=== PATIENT | male | born 1960 | race Caucasian/White ===

== ENCOUNTER 2018-04-18 09:30 | Day surgery (SDC) | payer OTHER ==
[2018-04-18] MEDS: NS 1,000 ML IV (11:54)
[2018-04-18] MEDS ORDERED: PROPOFOL 200 MG/20 ML VIAL As Ordered ×2 (12:32→12:49)
== END 2018-04-18 13:24 | disposition home or self-care (01) ==
LOC: M OPP 13:24
DX: Z12.11 Encounter for screening for malignant neoplasm of colon (principal); Z86.010 Personal history of colon polyps; K64.8 Other hemorrhoids; D12.3 Benign neoplasm of transverse colon; D12.2 Benign neoplasm of ascending colon; I10 Essential (primary) hypertension; F41.9 Anxiety disorder, unspecified; E78.00 Pure hypercholesterolemia, unspecified; M17.9 Osteoarthritis of knee, unspecified; F17.210 Nicotine dependence, cigarettes, uncomplicated; R01.1 Cardiac murmur, unspecified; Z79.82 Long term (current) use of aspirin; Z79.899 Other long term (current) drug therapy
CPT/HCPCS: 45385

== ENCOUNTER → 2021-09-26 | Outpatient (CLI) | payer OTHER ==
[~2021-09-26] MED LIST: AMLO1TAB24 PO; ASPI81TA86 PO; ATOR1TAB19 PO; CYCL-707; GLUCAGON INJ 1MG VIAL As Ordered ONE; GUAI100S51; HYDR-3363 PO; ISOVUE-370 76% 100ML VIAL As Ordered ONE; LISI20TA20 PO; LORA-243; MELA5TAB20 PO; NEULUMEX 0.1% SUSPENSION 450ML BOTTLE (FORMERLY VOLUMEN) As Ordered ONE; OMEP40CA4 PO; QUET50TA4 PO; SUCR1ORA PO; SUCR1TA PO; VITA200015 PO
[2021-09-26 12:04] LABS: BASO % 0.3 % (0.0-1.0); EOS # 0.3 10^3/uL (0.0-0.5); EOS % 2.2 % (0.0-3.0); HEMATOCRIT 36.7 % (42.0-52.0); HEMOGLOBIN 11.8 g/dl (13.5-17.5); LYMPH # 1.3 10^3/uL (1.5-5.0); LYMPH % 10.8 % (24.0-44.0); MEAN CORPUSCULAR HEMOGLOBIN 34.4 pg (27.0-33.0); MEAN CORPUSCULAR HGB CONC 32.2 g/dl (32.0-36.5); NEUTROPHILS # 9.4 10^3/uL (1.5-8.5); NEUTROPHILS % 78.1 % (36.0-66.0); PLATELET COUNT, AUTOMATED 452 10^3/uL (150-450); RED BLOOD COUNT 3.43 10^6/uL (4.30-6.10); WHITE BLOOD COUNT 12.1 10^3/uL (4.0-10.0)
[2021-09-26 12:50] LABS: ALBUMIN 3.3 GM/DL (3.2-5.2); BILIRUBIN,TOTAL 0.2 MG/DL (0.2-1.0); CALCIUM LEVEL 9.9 MG/DL (8.8-10.2); CREATININE FOR GFR 1.49 MG/DL (0.70-1.30); FREE T4 0.71 NG/DL (0.76-1.46); PERCENT SATURATION 18.9 % (19.7-50.0); POTASSIUM SERUM 4.6 MEQ/L (3.5-5.1); THYROID STIMULATING HORMONE 1.79 uIU/ML (0.358-3.740); TOTAL PROTEIN 8.9 GM/DL (6.4-8.2)
--- NOTE | 2021-09-26 17:49 | REP ---
INDICATION: IRON DEFICIENCY ANEMIA, DIARRHEA. COMPARISON: 10/26/2015 CT TECHNIQUE: Our CT enterography protocol including 3 doses of 450 mL Volumen, glucagon 0.6 mg IV over 40 seconds prior to IV contrast with 10 mL saline flush than a bolus 100 mL Isovue 370 at 4.5 mL/second. Arterial and venous phase axial imaging through the abdomen and pelvis with standard and MIP reformats for both phases in coronal and sagittal projections. FINDINGS: CT abdomen/pelvis: The lung bases were clear. Heart is not enlarged there is no pericardial thickening or effusion. Right lobe of the liver is not enlarged but the left lobe is prominent. Slight lobulated contour and a few tiny hypodensities scattered in the liver consistent with small cysts many of these seen on the previous study. There is no biliary dilatation or adjacent ascites. Spleen is not enlarged shows no focal lesion. There is no hiatal hernia. Stomach well filled and with retained fluid but not abnormally distended. Gallbladder without calcified stone or mass. Pancreas shows no mass, ductal dilatation or adjacent inflammatory change. Adrenal glands are normal. The kidneys show lobation and a few small renal cysts but no solid mass, hydronephrosis, stone or perinephric edema. There was no ureteral dilatation or ureteral stone on either side. The aorta has atherosclerotic calcifications and atherosclerotic stenosis of the proximal common iliac artery of at least 50% in its proximal course just below the bifurcation. Lung window review of all CT slices shows no perforation or free air in the abdomen or pelvis. There is no ventral abdominal wall hernia. The colon shows scattered diverticula without signs of diverticulitis in the distal left colon and proximal sigmoid. There is no definite inflammatory change in the pericolonic fat but there are areas of mildly thickened colonic wall that may reflect some mild colitis. This is seen in skip areas in the hepatic flexure, proximal transverse colon, splenic flexure and much of the course of the left colon. No pathologic sized periaortic, mesenteric or other retroperitoneal lymphadenopathy. Appendix is seen and normal. It extends superiorly along the peritoneal gutter and right abdominal wall towards the inferior pole of the right lobe of the liver but lateral to it. This is best seen on coronal image 100 of enterography venous MIP reformats. Small bowel loops show some nonspecific wall thickening of the jejunum and some proximal loops of ileum. Distal ileum and terminal ileum grossly unremarkable. In the pelvis, the bladder shows normal wall thickness and no stone, debris or mass. There is is no dilated ureter or stone in the distal ureters. No ventral pelvic or inguinal hernia. There are some fatty replaced inguinal nodes bilaterally with the largest 15 mm in short axis and fat replaced. Suspect these are fat replaced reactive nodes. They are larger on the right than left. IMPRESSION: 1. There is a nonspecific finding suspicious for skip colitis involving multiple segments including the hepatic flexure, portion of transverse colon and splenic flexure and the left colon. No inflammatory changes in the adjacent fat but bowel wall thickening identified. 2. Likewise the some mild thickening in the jejunum and proximal ileum may reflect nonspecific small bowel enteritis. No pathologic sized adenopathy, infiltration of the mesenteric fat or for ascites. 3. Appendix normal. 4. Left lobe of the liver enlarged and this may reflect some mild chronic liver disease. The gallbladder, pancreas, spleen, adrenal glands and kidneys are unremarkable. 5. Enlarged but fat replaced inguinal nodes right greater than left may be reactive adenopathy. 6. At least 50% stenosis of the proximal right common iliac artery due to atherosclerotic plaque. No poststenotic dilatation. <Electronically signed by Prosper Lainez > 09/26/21 [id number]
== END ==
LOC: M RAD 10:20
PROVIDERS: ATTEND Physician Assistant Medical
DX: D50.9 Iron deficiency anemia, unspecified (principal); R19.7 Diarrhea, unspecified
CPT/HCPCS: 74177; 80053; 82784; 83550; 84439; 84443; 85025; 86235; J1610; Q9967

== ENCOUNTER → 2021-10-29 | Outpatient (CLI) | payer OTHER ==
[~2021-10-29] MED LIST changes: +ASPI81TA26 PO; +BENZ200C70 PO; +CEFD1CAP8 PO; +D31000TA2 PO; -GLUCAGON INJ 1MG VIAL As Ordered ONE; -ISOVUE-370 76% 100ML VIAL As Ordered ONE; -NEULUMEX 0.1% SUSPENSION 450ML BOTTLE (FORMERLY VOLUMEN) As Ordered ONE
--- NOTE | 2021-10-29 10:50 | REP ---
INDICATION: SHORTNESS OF BREATH. COMPARISON: Comparison chest x-ray August 29, 2020. TECHNIQUE: Two views.. FINDINGS: The lungs are slightly hyperinflated but free of infiltrate. The pleural angles are sharp. Cardiomediastinal silhouette is unremarkable. The thoracic aorta is slightly tortuous. No acute bony abnormality is seen. There are degenerative changes in the thoracic spine. Pulmonary vasculature is not increased. IMPRESSION: No active disease. <Electronically signed by King Jackson > 10/29/21 [id number]
== END ==
LOC: M RAD 10:08
PROVIDERS: ATTEND Physician Assistant
DX: R06.02 Shortness of breath (principal)

== ENCOUNTER → 2021-10-30 | Outpatient (CLI) | payer OTHER | LOC: M LABSMTC 11:38 | PROVIDERS: ATTEND Anesthesiology | DX: Z01.812 Encounter for preprocedural laboratory examination (principal); Z20.822 Contact with and (suspected) exposure to COVID-19 ==

== ENCOUNTER 2021-12-07 06:37 | Day surgery (SDC) | payer OTHER ==
[~2021-12-07] VITALS: Ht 170.2 cm; Wt 96.1 kg
[~2021-12-07 06:37] MED LIST changes: +ACET-897 PO; +ALBU8.5H INH; +BUTA-198 PO; -CEFD1CAP8 PO; +CEFD300C41 PO; -CYCL-707; +CYCL-707 PO; +FAMO40TA3 PO; +FERR32TA PO; +FLUT1INH2 INH; +FURO20TA2 PO; +HYDR-643 PO; -LISI20TA20 PO; +LISI20TA35 PO; +LISI20TA37 PO; -LORA-243; +LORA-243 PO; +MAPA650T PO; +METF500T13 PO; +MONT10TA97 PO; +NS 1,000 ML IV ONE; +ONDA-83 PO; +PANT40TA29 PO; +POTA10TA17 PO; +QUET100T2 PO; +VITACAP8 PO
[2021-12-07] MEDS ORDERED: LIDOCAINE 2% MDV 20ML VIAL As Ordered ONE (06:43)
[2021-12-07] MEDS ORDERED: propofoL 500 MG/50 ML VIAL As Ordered ONE (06:43)
[2021-12-07] MEDS ORDERED: fentaNYL 100 MCG/2 ML INJECTION (J3010) As Ordered ONE (06:44)
[2021-12-07] MEDS ORDERED: propofoL 200 MG/20 ML VIAL As Ordered ONE (07:51)
[2021-12-07] MEDS ORDERED: NS 1,000 ML IV ONE (08:05)
[2021-12-07 08:24] VITALS: BP 154/73
== END 2021-12-07 11:58 | disposition home or self-care (01) ==
LOC: M OPP 06:37
PROVIDERS: ATTEND Internal Medicine Gastroenterology
DX: D50.9 Iron deficiency anemia, unspecified (principal); K52.89 Other specified noninfective gastroenteritis and colitis; R19.7 Diarrhea, unspecified; R12 Heartburn; J44.9 Chronic obstructive pulmonary disease, unspecified; N18.30 Chronic kidney disease, stage 3 unspecified; Z79.82 Long term (current) use of aspirin; Z79.84 Long term (current) use of oral hypoglycemic drugs; Z79.899 Other long term (current) drug therapy; F17.210 Nicotine dependence, cigarettes, uncomplicated
CPT/HCPCS: 43235; 45380; 88305; J3010

== ENCOUNTER → 2022-04-28 | Outpatient (CLI) | payer OTHER ==
[~2022-04-28] MED LIST changes: -D31000TA2 PO; -NS 1,000 ML IV ONE; +VITA100093 PO
[2022-04-28 14:02] LABS: BASO # 0.1 10^3/uL (0.0-0.2); BASO % 0.5 % (0.0-1.0); EOS # 0.4 10^3/uL (0.0-0.5); EOS % 3.5 % (0.0-3.0); HEMATOCRIT 41.4 % (42.0-52.0); HEMOGLOBIN 13.9 g/dl (13.5-17.5); LYMPH # 2.1 10^3/uL (1.5-5.0); LYMPH % 19.1 % (24.0-44.0); MEAN CORPUSCULAR HEMOGLOBIN 32.8 pg (27.0-33.0); MEAN CORPUSCULAR HGB CONC 33.6 g/dl (32.0-36.5); MEAN CORPUSCULAR VOLUME 97.6 fl (80.0-96.0); MONO # 1.1 10^3/uL (0.0-0.8); MONO % 10.3 % (2.0-8.0); NEUTROPHILS # 7.1 10^3/uL (1.5-8.5); PLATELET COUNT, AUTOMATED 391 10^3/uL (150-450); RED BLOOD COUNT 4.24 10^6/uL (4.30-6.10); WHITE BLOOD COUNT 10.7 10^3/uL (4.0-10.0)
[2022-04-28 14:25] LABS: CALCIUM LEVEL 9.1 MG/DL (8.8-10.2); CREATININE FOR GFR 1.3 MG/DL (0.70-1.30); GLOMERULAR FILTRATION RATE 59.5 (>49); POTASSIUM SERUM 3.9 MEQ/L (3.5-5.1)
== END ==
LOC: M LAB 13:03
PROVIDERS: ATTEND Physician Assistant
DX: Z41.2 Encounter for routine and ritual male circumcision (principal)

== ENCOUNTER 2022-05-16 06:40 | Day surgery (SDC) | payer OTHER ==
[~2022-05-16] VITALS: Ht 170.2 cm; Wt 93.8 kg
[~2022-05-16 06:40] MED LIST changes: +LR 1,000 ML IV SCH; +ceFAZolin SOD 2 GM in IV 1 EA IV ONE
[2022-05-16] MEDS ORDERED: MIDAZOLAM INJ 2MG/2ML VIAL (J2250 PER 1MG) As Ordered ONE (07:05)
[2022-05-16] MEDS ORDERED: fentaNYL 100 MCG/2 ML INJECTION As Ordered ONE ×2 (07:05→08:14)
[2022-05-16] MEDS ORDERED: propofoL 200 MG/20 ML VIAL As Ordered ONE (07:06)
[2022-05-16] MEDS ORDERED: LIDOCAINE 2% 100MG/5ML SDV (FOR ANES.) As Ordered ONE (07:06)
[2022-05-16] MEDS ORDERED: BACITRACIN OINTMENT 30GM TUBE As Ordered ONE (07:16)
[2022-05-16] MEDS ORDERED: ONDANSETRON 4MG 2ML VIAL As Ordered ONE (07:20)
[2022-05-16] MEDS ORDERED: ROCURONIUM BROMIDE 50 MG/5 ML VIAL As Ordered ONE ×2 (07:20→08:03)
[2022-05-16] MEDS ORDERED: SUGAMMADEX SODIUM 500 MG/5 ML VIAL (BRIDION) As Ordered ONE (07:20)
[2022-05-16] MEDS ORDERED: ePHEDrine SULFATE 25 MG/5 ML(5MG/ML) SYRINGE As Ordered ONE (08:26)
[2022-05-16] MEDS ORDERED: oxyCODONE 5MG TAB PO PRN (08:45)
[2022-05-16] MEDS ORDERED: fentaNYL 100 MCG/2 ML INJECTION IV PRN (08:45)
[2022-05-16] MEDS ORDERED: ONDANSETRON 4MG 2ML VIAL IV PRN (08:45)
[2022-05-16] MEDS ORDERED: LR 1,000 ML IV SCH (08:45)
[2022-05-16] MEDS ORDERED: OXYC1TAB23 PO (09:16)
[2022-05-16] MEDS ORDERED: PERCOCET 5MG/325MG TAB PO PRN (09:30)
[2022-05-16 09:38] VITALS: BP 142/71
== END 2022-05-16 10:12 | disposition home or self-care (01) ==
LOC: M SDC 06:40
PROVIDERS: ATTEND Urology
DX: N47.1 Phimosis (principal)
CPT/HCPCS: 54161; 87428; 88304; J0690; J2250; J2405; J3010

== ENCOUNTER → 2022-10-26 | Outpatient (CLI) | payer OTHER ==
[~2022-10-26] MED LIST changes: -LR 1,000 ML IV SCH; +OXYC1TAB23 PO; +POTA-150 PO; -POTA10TA17 PO; -ceFAZolin SOD 2 GM in IV 1 EA IV ONE
== END ==
LOC: M WHC 08:36
PROVIDERS: ATTEND Physician Assistant Medical
DX: R93.3 Abnormal findings on diagnostic imaging of other parts of digestive tract (principal); R16.0 Hepatomegaly, not elsewhere classified; K76.0 Fatty (change of) liver, not elsewhere classified

== ENCOUNTER → 2024-06-04 | Outpatient (CLI) | payer OTHER ==
[~2024-06-04] MED LIST changes: +CEFD1CAP9 PO; -CEFD300C41 PO
== END ==
LOC: M RAD 06:55
PROVIDERS: ATTEND Internal Medicine Nephrology
DX: N18.4 Chronic kidney disease, stage 4 (severe) (principal); I70.1 Atherosclerosis of renal artery; K76.0 Fatty (change of) liver, not elsewhere classified